=== PATIENT | male | born 1950 | race Caucasian/White ===

== ENCOUNTER 2016-11-08 12:27 | Emergency (ER) | payer BC ==
--- NOTE | ~2016-11-08 | EKG ---
PATIENT: GLENN ACOSTA UNIT #: [id number] Ventricular Rate: 81 BPM Atrial Rate: 81 BPM P-R Interval: 184 ms QRS Duration: 158 ms Q-T Interval: 456 ms QTC Calculation(Bezet): 529 ms P Colstrip: 61 degrees Calculated R Colstrip: 10 degrees Calculated T Colstrip: 54 degrees Diagnosis Line: Normal sinus rhythm Diagnosis Line: Left bundle branch block Diagnosis Line: Abnormal ECG Diagnosis Line: When compared with ECG of 19-FEB-2015 12:27, Diagnosis Line: Left bundle branch block is now Present Diagnosis Line: Diagnosis Line: Confirmed by WILBER CARVALHO MD ([id number]) on Diagnosis Line: 11/08/2016 9:37:06 PM INTERPRETING : DEDE
--- NOTE | ~2016-11-08 | CR72 ---
[facility] A Service of [facility] & [facility] RADIOLOGY TEXT RESULTS PATIENT: GLENN ACOSTA V LOCATION: [facility] : 54 UNIT #: [id number] AGE: [address]: Idania Mann MD SEX: M ORDER DR: [id number] [facility] [address] [place], [place] [address] [id number] E MR#: [id number] Acc #: [id number] NAME: GLENN ACOSTA : 1950 SEX: M STUDY DATE/TIME: 11/08/2016 12:38 UNIT: [facility] ROOM: STUDY DESCRIPTION: CR Chest Single View Portable Attending Physician: Idania Mann M.D. Ordering Physician: Crystal Snowden P.A.-C. Primary Care Physician: Vero Aguillon M.D. MEDICAL IMAGING REPORT This report is preliminary unless electronic signature is present EXAM Single view chest. HISTORY Shortness of air. 2-day duration. Cough. FINDINGS AP view of the chest compared to 02/19/2015. Heart and mediastinal contours are normal. The lungs are clear. No pleural effusion. IMPRESSION No acute cardiopulmonary findings. Dictated by... Dante Morse M.D. THIS IS AN ELECTRONICALLY VERIFIED REPORT Dante Morse M.D. at 11/08/2016 4:13 PM MIKE/gisella TD: 11/08/2016 14:07 JOB #: [id number] MEDICAL IMAGING REPORT Page 1 of 1 COPY
--- NOTE | ~2016-11-08 | CR195 ---
[facility] A Service of [facility] & [facility] RADIOLOGY TEXT RESULTS PATIENT: GLENN ACOSTA V LOCATION: [facility] : 54 UNIT #: [id number] AGE: [address]: Idania Mann MD SEX: M ORDER DR: [id number] [facility] [address] [place], [place] [address] [id number] E MR#: [id number] Acc #: [id number] NAME: GLENN ACOSTA : 1950 SEX: M STUDY DATE/TIME: 11/08/2016 13:18 UNIT: [facility] ROOM: STUDY DESCRIPTION: Neck Soft Tissue Attending Physician: Idania Mnan M.D. Ordering Physician: Idania Mann M.D. Primary Care Physician: Vero Aguillon M.D. MEDICAL IMAGING REPORT This report is preliminary unless electronic signature is present EXAM Neck soft tissue 11/08 INDICATIONS Sore throat and cough for 2 days. FINDINGS AP and lateral soft tissue views of the neck were obtained. Multilevel degenerative disc disease is present. The prevertebral soft tissues are normal. The epiglottis is normal. The airway is normal. IMPRESSION Normal soft tissue views of the neck. Incidental note is made of multilevel cervical degenerative disease. Dictated by... Raheem Campbell Jr., M.D. THIS IS AN ELECTRONICALLY VERIFIED REPORT Raheem Campbell Jr., M.D. at 11/08/2016 3:43 PM PRISCILLA/florentino TD: 11/08/2016 14:51 JOB #: [id number] MEDICAL IMAGING REPORT Page 1 of 1 COPY
[2016-11-08 12:13] LABS: INFLUENZA A NEG (NEG); INFLUENZA B NEG (NEG)
[~2016-11-08 12:27] MED LIST: ACETAMINOPHEN; ACETAMINOPHEN PO; ALBUTEROL17 GM INH; ALDACTONE PO; AMOXICILLIN PO; ASPIRIN; ASPIRIN PO; ASPIRIN81 MG PO; BENZONATATE PO; CARVEDILOL25 MG PO; CIPRO PO; COREG; COREG PO; CRESTOR PO; DIOVAN PO; FAMOTIDINE; FLAGYL PO; K-DUR20 ME1 PO; KLOR-CON PO; LASIX PO; LISINOPRIL-HCTZ1 T14 PO; LORTAB 7.5-5001 TAB PO; MEDROL4 MG/DOSE- PO; PHENERGAN PO; PRILOSEC; PRILOSEC PO; TEKTURNA150 MG PO; TUSSIONEX PENN473 ML PO; TYLENOL325 M1 PO; ZYRTEC PO
== END 2016-11-08 14:53 | disposition home or self-care (01) ==
LOC: CED 12:27
PROVIDERS: Physician Assistant
DX: J02.9 Acute pharyngitis, unspecified (principal); Z88.2 Allergy status to sulfonamides; Z88.6 Allergy status to analgesic agent
CPT/HCPCS: 70360; 71010; 87651; 87804; 93005; 96374; 96375; 99284; J1200; J2930

== ENCOUNTER → 2017-03-18 | Outpatient (CLI) | payer BC ==
--- NOTE | ~2017-03-18 | CT57 ---
[facility] A Service of [facility] RADIOLOGY TEXT RESULTS PATIENT: GLENN ACOSTA LOCATION: [facility] : 54 UNIT #: [id number] AGE: [address]: Claudio Goncalves MD SEX: M ORDER DR: [id number] [place] [id number] [facility] [place], [place] [address] [id number] O MR#: [id number] [facility] #: [id number] NAME: GLENN ACOSTA : 1950 SEX: M STUDY DATE/TIME: 03/18/2017 12:37 UNIT: [facility] ROOM: STUDY DESCRIPTION: CT Chest Wo Cont Attending Physician: Claudio Goncalves M.D. Referring Physician: Claudio Goncalves M.D. Ordering Physician: Claudio Goncalves M.D. Primary Care Physician: Vero Aguillon M.D. MEDICAL IMAGING REPORT This report is preliminary unless electronic signature is present EXAM CT chest without contrast INDICATION Followup aortic aneurysm. TECHNIQUE CT scan of the chest was performed without contrast. Coronal and sagittal reformatted images were obtained. This CT exam was performed with one or more of the following radiation dose reduction techniques: automatic exposure control, adjustment of mA and/or kV according to patient size, and iterative reconstruction. COMPARISON 03/20/2016 FINDINGS Ascending aortic aneurysm measures about 4.7-4.8 cm in greatest dimension. This measures minimally larger than the prior study. The descending thoracic aorta is within normal limits. No lymphadenopathy or pleural effusion. Stable micronodule in the right upper lobe. Limited imaging of the upper abdomen is unremarkable. The bone windows are unremarkable. IMPRESSION Slight minimal interval enlargement of ascending aortic aneurysm now measuring about 4.7-4.8 cm in greatest dimension. Dictated by... Jared Patel M.D. THIS IS AN ELECTRONICALLY VERIFIED REPORT Jared Patel M.D. at 03/19/2017 7:00 AM [facility] A Service of [facility] RADIOLOGY TEXT RESULTS PATIENT: GLENN ACOSTA LOCATION: [facility] : 54 UNIT #: [id number] AGE: [address]: Claudio Goncalves MD SEX: M ORDER DR: HILDA/ro TD: 03/18/2017 18:58 JOB #: [id number] MEDICAL IMAGING REPORT Page 1 of 1 COPY
== END | disposition home or self-care (01) ==
LOC: CCAT 12:08
DX: I71.2 Thoracic aortic aneurysm, without rupture (principal); Z88.2 Allergy status to sulfonamides; Z88.8 Allergy status to other drugs, medicaments and biological substances
CPT/HCPCS: 71250